=== PATIENT | female | born 1990 | race Caucasian/White ===

== ENCOUNTER 2021-10-08 11:19 | Emergency (ER) | payer MEDICAID ==
[~2021-10-08] VITALS: Ht 154.9 cm; Wt 82.0 kg
[2021-10-08 11:26] VITALS: BP 139/84
== END 2021-10-08 17:19 | disposition left against medical advice (07) ==
LOC: ER 11:19
DX: R53.1 Weakness (principal); R11.10 Vomiting, unspecified; Z20.822 Contact with and (suspected) exposure to COVID-19; Z98.890 Other specified postprocedural states
CPT/HCPCS: 93005; 99283